=== PATIENT | female | born 1965 | race Caucasian/White ===

== ENCOUNTER 2017-07-18 01:55 | Emergency (ER) | payer MEDICAID ==
[~2017-07-18] VITALS: Ht 160 cm; Wt 99.8 kg
[2017-07-18 04:54] LABS: Urine Bacteria MOD /hpf (None Seen); Urine Blood Negative /uL (Negative); Urine Mucus FEW (None Seen); Urine WBC 153 /hpf (0 - 5)
[2017-07-18 07:40] VITALS: BP 130/83
[2017-07-18 08:13] LABS: Albumin 3.4 g/dL (3.4-5.0); BUN/Creatinine Ratio 16.5; Bilirubin, Total 1.7 mg/dL (0.2-1.0); Calcium 8.6 mg/dL (8.5-10.1); Potassium 3.6 mmol/L (3.5-5.1); Total Protein 8.5 g/dL (6.4-8.2)
[2017-07-18] MEDS ORDERED: cefTRIAXone 1GM/10ml IVPUSH 10 ML IV ONE (08:15)
[2017-07-18] MEDS ORDERED: KETOROLAC TROMETH 30 MG/ML 1ML VIAL IV ONE (08:15)
[2017-07-18 08:24] LABS: Basophils # (auto) 0.1 uL; Basophils % (auto) 0.6 % (0.0-2.0); Eosinophils # (auto) 0.1 uL; Eosinophils % (auto) 0.5 % (0.0-7.0); Hematocrit 41.9 % (36.0-46.0); Hemoglobin 13.9 g/dL (12.2-16.2); Lymphocytes # (auto) 2.5 uL; Lymphocytes % (auto) 17.3 % (10.0-50.0); Mean Corpuscular Hemoglobin 29.7 pg (28.0-32.0); Mean Corpuscular Hgb Conc. 33.1 g/dL (32.0-36.0); Mean Corpuscular Volume 89.7 fL (80.0-100.0); Monocytes # (auto) 0.8 uL; Monocytes % (auto) 5.3 % (0.0-12.0); Neutrophils % (auto) 76.3 % (37.0-80.0); Nucleated Red Blood Cells % 0.1 %; Platelet Count (auto) 309 10^3/uL (140-450); Red Blood Cells 4.67 10^6/uL (4.0-5.20); Red Cell Distribution Width 13.9 % (11.8-14.3); White Blood Cell 14.4 10^3/uL (4.4-10.8)
== END 2017-07-18 09:11 | disposition home or self-care (01) ==
LOC: ER 01:55
DX: N39.0 Urinary tract infection, site not specified (principal); N20.0 Calculus of kidney; R11.2 Nausea with vomiting, unspecified; Z90.49 Acquired absence of other specified parts of digestive tract
CPT/HCPCS: 36415; 74176; 80053; 81001; 82150; 83690; 85025; 93005; 96374; 96375; 99285; J1885